=== PATIENT | male | born 1990 | race Caucasian/White ===

== ENCOUNTER 2019-09-30 17:16 | Emergency (ER) | payer OTHER ==
[~2019-09-30] VITALS: Ht 185.4 cm; Wt 74.8 kg
[2019-09-30 17:19] VITALS: BP 130/90
--- NOTE | 2019-09-30 17:30 | NUR ---
[id number] and lapd, in custody,from street, substance abuse, admits on taking heroin. Patient a/ox3, breathing even and unlabored, no sob noted.
--- NOTE | 2019-09-30 19:11 | NUR ---
Endorsed to Susana PHILLIPS.
== END 2019-09-30 20:02 ==
LOC: ER 17:18
DX: F11.10 Opioid abuse, uncomplicated (principal)